=== PATIENT | female | born 1985 | race Caucasian/White ===

== ENCOUNTER 2024-11-06 12:23 | Day surgery (SDC) | payer SELFPAY ==
[2024-11-06 13:04] VITALS: BMI 47.6
[2024-11-06] MEDS ORDERED: hydrALAZINE 20 MG/ML VIAL SLOW IVP PRN (13:06)
[2024-11-06 14:09] LABS: Creatinine, Urine 256.02 mg/dL (16.00-327.00)
[2024-11-06 14:40] LABS: #Basophils Less than 0.03 10x3/uL (0.0-0.2); #Monocytes 0.54 10x3/uL (0.0-1.1); #Neutrophils 5.93 10x3/uL (1.5-8.4); %Basophils 0.2 % (0.0-2.0); %Eosinophils 1.2 % (0.0-6.0); %Lymphocytes 17.9 % (18.0-47.0); %Monocytes 6.7 % (0.0-10.0); %Neutrophils 73.4 % (40.0-75.0); Hematocrit 29.9 % (34.9-44.5); Hemoglobin 10.4 g/dL (12.0-15.5); Mean Corpuscular HGB CONC 34.8 g/dL (32.0-36.0); Mean Corpuscular Hemoglobin 30.6 pg (27.0-33.0); Mean Corpuscular Volume 87.9 fL (81.6-98.3); Mean Platelet Volume 10.4 fL (7.4-10.4); Platelet Count 147 10x3/uL (150-450); RBC Distribution Width 14.9 % (11.5-14.5); White Blood Cell (WBC) Count 8.09 10x3/uL (3.5-10.5)
[2024-11-06 15:01] LABS: ALT (SGPT) 11 U/L (Less than 34); AST (SGOT) 20 U/L (11-34); Albumin 2.9 g/dL (3.1-4.5); Alkaline Phosphatase 73 U/L (40-110); Anion Gap 16 mmol/L (10-20); BUN (Urea Nitrogen) 12 mg/dL (7.0-18.7); Bilirubin, Total 0.2 mg/dL (0.3-1.2); Calc. Creatinine Clearance 238 mL/min (70-130); Calcium 9.5 mg/dL (7.8-10.44); Carbon Dioxide 15 mmol/L (22-29); Chloride 105 mmol/L (98-107); Estimated GFR 118; Globulin 3.8 g/dL (2.4-3.5); Glucose 99 mg/dL (70-105); Protein, Total 6.7 g/dL (6.0-8.3); Sodium 132 mmol/L (136-145)
== END 2024-11-06 16:50 | disposition home or self-care (01) ==
LOC: CSHLD/OP 12:23
PROVIDERS: ATTEND Obstetrics & Gynecology
DX: O14.03 Mild to moderate pre-eclampsia, third trimester (principal); O99.891 Other specified diseases and conditions complicating pregnancy; R51.9 Headache, unspecified; H53.8 Other visual disturbances; O24.419 Gestational diabetes mellitus in pregnancy, unspecified control; O99.213 Obesity complicating pregnancy, third trimester; O99.283 Endocrine, nutritional and metabolic diseases complicating pregnancy, third trimester; E03.9 Hypothyroidism, unspecified; O09.523 Supervision of elderly multigravida, third trimester; O09.43 Supervision of pregnancy with grand multiparity, third trimester; Z79.84 Long term (current) use of oral hypoglycemic drugs; Z79.4 Long term (current) use of insulin; Z79.82 Long term (current) use of aspirin; Z79.899 Other long term (current) drug therapy; Z87.59 Personal history of other complications of pregnancy, childbirth and the puerperium; Z3A.35 35 weeks gestation of pregnancy
CPT/HCPCS: 80053; 82570; 84156; 85025; 99283

== ENCOUNTER 2024-11-15 20:13 | Inpatient (IN) | payer OTHER, SELFPAY ==
[~2024-11-15 20:13] MED LIST: Bupivacaine 0.25% HCL 30 ML VIAL ONE; Lidocaine 2% MPF 10 ML AMP (For Epidural Use) ONE; ePHEDrine Sulfate 50 MG/10 ML VIAL ONE
[2024-11-15] MEDS ORDERED: Misoprostol 200 MCG TAB PR PRN (20:23)
[2024-11-15] MEDS ORDERED: Diphenoxylate HCl/Atropine Tablet PO PRN (20:23)
[2024-11-15] MEDS ORDERED: Tranexamic Acid 1,000 MG/10 ML VIAL IVP PRN (20:23)
[2024-11-15] MEDS ORDERED: Carboprost 250 MCG/ML AMP IM PRN (20:23)
[2024-11-15] MEDS ORDERED: Lidocaine 1% (PF) 30 ML VIAL SC PRN (20:23)
[2024-11-15] MEDS ORDERED: Ondansetron PF 4 MG/2 ML Vial IVP PRN (20:23)
[2024-11-15] MEDS ORDERED: Promethazine HCl 25 MG/ML VIAL IM PRN (20:23)
[2024-11-15] MEDS ORDERED: Acetaminophen 500 MG TAB PO PRN (20:23)
[2024-11-15] MEDS ORDERED: Ibuprofen 800 MG TAB PO PRN (20:23)
[2024-11-15 21:04] VITALS: BMI 48.6
[2024-11-15 21:44] LABS: #Basophils Less than 0.03 10x3/uL (0.0-0.2); #Eosinophils 0.14 10x3/uL (0.0-0.5); #Monocytes 0.57 10x3/uL (0.0-1.1); %Basophils 0.2 % (0.0-2.0); %Eosinophils 1.6 % (0.0-6.0); %Lymphocytes 20.7 % (18.0-47.0); %Monocytes 6.6 % (0.0-10.0); %Neutrophils 69.2 % (40.0-75.0); Hematocrit 30.7 % (34.9-44.5); Hemoglobin 10.9 g/dL (12.0-15.5); Mean Corpuscular HGB CONC 35.5 g/dL (32.0-36.0); Mean Corpuscular Hemoglobin 31.6 pg (27.0-33.0); Mean Platelet Volume 10.4 fL (7.4-10.4); Platelet Count 168 10x3/uL (150-450); RBC Distribution Width 14.9 % (11.5-14.5); Red Blood Cell (RBC) Count 3.45 10x6/uL (3.90-5.03); White Blood Cell (WBC) Count 8.68 10x3/uL (3.5-10.5)
[2024-11-15 22:05] LABS: ALT (SGPT) 11 U/L (Less than 34); AST (SGOT) 20 U/L (11-34); Albumin 2.9 g/dL (3.1-4.5); Alkaline Phosphatase 86 U/L (40-110); Anion Gap 18 mmol/L (10-20); BUN (Urea Nitrogen) 13 mg/dL (7.0-18.7); Bilirubin, Total 0.2 mg/dL (0.3-1.2); Calc. Creatinine Clearance 182 mL/min (70-130); Calcium 9.6 mg/dL (7.8-10.44); Carbon Dioxide 15 mmol/L (22-29); Chloride 104 mmol/L (98-107); Estimated GFR 92; Globulin 3.8 g/dL (2.4-3.5); Glucose 92 mg/dL (70-105); Potassium 3.9 mmol/L (3.5-5.1); Protein, Total 6.7 g/dL (6.0-8.3); Sodium 133 mmol/L (136-145)
[2024-11-15 22:47] LABS: Syphilis Antibody Nonreactive (Nonreactive); Syphilis Antibody Index 0.04 S/CO (<1.00 Non-Reactive)
[2024-11-15 22:49] LABS: HBsAg Index 0.19 S/CO (0-0.99); HIV (1/2) Antibody/Antigen Non-Reactive (NonReactive); HIV 1/2 INDEX 0.11 S/CO (<1.00); Hep B Surf Ag - L&D Non-Reactive S/CO (NonReactive)
[2024-11-16] MEDS: Lactated Ringer's 1,000 ML IV SCH (05:29)
[2024-11-16] MEDS: Oxytocin 30 units/NS 500 ML 500 ML IV SCH ×2 (05:31→18:12)
[2024-11-16] MEDS: fentaNYL 2 mcg/Ropivacaine 0.2% Epidural 100 ML CADD EPIDURAL SCH (15:15)
[2024-11-16] MEDS ORDERED: Lactated Ringer's 500 ML IV PRN (15:23)
[2024-11-16] MEDS ORDERED: Promethazine HCl 25 MG/ML VIAL IM PRN (15:23)
[2024-11-16] MEDS ORDERED: Naloxone HCl 0.4 mg/ml Vial IVP PRN ×4 (15:23→21:18)
[2024-11-16] MEDS ORDERED: Acetaminophen 325 MG TAB PO PRN (15:23)
[2024-11-16] MEDS ORDERED: Ondansetron PF 4 MG/2 ML Vial IVP PRN ×3 (15:23→21:18)
[2024-11-16] MEDS ORDERED: Moisturizing Cream (Eucerin) 113 GM JAR TOP PRN ×2 (15:23→21:18)
[2024-11-16] MEDS ORDERED: diphenhydrAMINE 50 MG/ML VIAL IVP PRN ×2 (15:23→21:18)
[2024-11-16] MEDS ORDERED: ePHEDrine Sulfate 50 MG/10 ML VIAL SLOW IVP PRN (15:23)
[2024-11-16] MEDS ORDERED: Communication Order-Pharmacy FS SCH ×2 (15:30→21:30)
[2024-11-16] MEDS: CEFAZOLIN 2 GM VIAL ONE (19:36)
[2024-11-16] MEDS: hydrALAZINE 20 MG/ML VIAL SLOW IVP PRN (19:39)
[2024-11-16] MEDS ORDERED: Bicitra 30 ML UDCUP PO PRN (19:40)
[2024-11-16] MEDS ORDERED: Famotidine/PF 20 mg/2ml Vial SLOW IVP PRN (19:40)
[2024-11-16] MEDS ORDERED: CEFAZOLIN 2 GM in Sodium Chloride 0.9% 100 ML IVPB SCH (19:45)
[2024-11-16] MEDS ORDERED: Azithromycin 500 MG in Sodium Chloride 0.9% 250 ML 250 ML IVPB SCH (19:45)
[2024-11-16] MEDS ORDERED: Labetalol HCl 100 MG/20 ML VIAL SLOW IVP PRN ×2 (19:59)
[2024-11-16] MEDS ORDERED: hydrALAZINE 20 MG/ML VIAL SLOW IVP PRN ×3 (19:59→21:17)
[2024-11-16] MEDS ORDERED: Calcium Gluc 4.6 MEQ/10 ML (100 MG/ML) SLOW IVP PRN ×2 (19:59→21:17)
[2024-11-16] MEDS ORDERED: Lorazepam 2 MG/ML VIAL SLOW IVP PRN (19:59)
[2024-11-16 20:36] LABS: Analyzer IN Cardio CS NICU; RapidComm Collect By RN; pH (Cord, venous) 7.356 (7.250-7.350)
[2024-11-16 20:37] LABS: Analyzer IN Cardio CS NICU; RapidComm Collect By RN
[2024-11-16] MEDS ORDERED: Lanolin Ointment 7 GM TUBE TOP PRN (21:17)
[2024-11-16] MEDS ORDERED: Bisacodyl 10 MG SUPP PR PRN (21:17)
[2024-11-16] MEDS ORDERED: Misoprostol 200 MCG TAB PR PRN (21:17)
[2024-11-16] MEDS ORDERED: diphenhydrAMINE 25 MG CAP PO PRN (21:17)
[2024-11-16] MEDS ORDERED: fentaNYL 50 mcg/mL 1 mL Vial SLOW IVP PRN (21:18)
[2024-11-16] MEDS ORDERED: Naloxone HCl 0.4 mg/ml Vial IV PRN (21:18)
[2024-11-16] MEDS ORDERED: Meperidine HCl/PF 25 MG (1 mL) VIAL SLOW IVP PRN (21:18)
[2024-11-16] MEDS ORDERED: HYDROmorphone 0.5 MG/0.5 ML SYRINGE SLOW IVP PRN (21:18)
[2024-11-16] MEDS: Magnesium Sulfate 20 gm/500 ml 20 GM/500 ML BAG IVPB SCH (21:20)
[2024-11-16] MEDS ORDERED: Ketorolac Tromethamine 30 MG (1 mL) VIAL IVP SCH (21:30)
[2024-11-16] MEDS ORDERED: Oxytocin 30 units/NS 500 ML 500 ML IV SCH (21:30)
[2024-11-16] MEDS ORDERED: Magnesium Sulfate 20 gm/500 ml 20 GM/500 ML BAG IVPB SCH (21:30)
[2024-11-16] MEDS: Misoprostol 200 MCG TAB ONE (21:43)
[2024-11-16] MEDS: Methylergonovine 0.2 MG/ML VIAL ONE (21:43)
[2024-11-16] MEDS: Tranexamic Acid 1,000 MG/10 ML VIAL ONE (21:45)
[2024-11-16] MEDS: Carboprost 250 MCG/ML AMP ONE (21:45)
[2024-11-16] MEDS: Azithromycin 500 MG VIAL ONE (21:45)
[2024-11-16 22:08] LABS: ALT (SGPT) 9 U/L (Less than 34); AST (SGOT) 16 U/L (11-34); Albumin 2.5 g/dL (3.1-4.5); Alkaline Phosphatase 70 U/L (40-110); Anion Gap 15 mmol/L (10-20); BUN (Urea Nitrogen) 9 mg/dL (7.0-18.7); Bilirubin, Total 0.1 mg/dL (0.3-1.2); Calc. Creatinine Clearance 295 mL/min (70-130); Calcium 8.3 mg/dL (7.8-10.44); Carbon Dioxide 14 mmol/L (22-29); Chloride 108 mmol/L (98-107); Estimated GFR 123; Globulin 3.1 g/dL (2.4-3.5); Glucose 98 mg/dL (70-105); Potassium 3.8 mmol/L (3.5-5.1); Protein, Total 5.6 g/dL (6.0-8.3); Sodium 133 mmol/L (136-145)
[2024-11-16 22:30] LABS: #Basophils Less than 0.03 10x3/uL (0.0-0.2); #Eosinophils 0.07 10x3/uL (0.0-0.5); #Monocytes 0.58 10x3/uL (0.0-1.1); #Neutrophils 7.48 10x3/uL (1.5-8.4); %Basophils 0.2 % (0.0-2.0); %Eosinophils 0.7 % (0.0-6.0); %Lymphocytes 14.8 % (18.0-47.0); %Neutrophils 77.6 % (40.0-75.0); Hematocrit 29.5 % (34.9-44.5); Hemoglobin 9.7 g/dL (12.0-15.5); Mean Corpuscular HGB CONC 32.9 g/dL (32.0-36.0); Mean Corpuscular Volume 91.3 fL (81.6-98.3); Mean Platelet Volume 10.6 fL (7.4-10.4); Platelet Count 145 10x3/uL (150-450); RBC Distribution Width 14.8 % (11.5-14.5); Red Blood Cell (RBC) Count 3.23 10x6/uL (3.90-5.03); White Blood Cell (WBC) Count 9.65 10x3/uL (3.5-10.5)
[2024-11-17] MEDS: Ondansetron PF 4 MG/2 ML Vial IVP PRN (00:30)
[2024-11-17] MEDS: Promethazine HCl 25 MG/ML VIAL IM PRN (04:08)
[2024-11-17 05:21] LABS: Hematocrit 27.7 % (34.9-44.5); Hemoglobin 9.6 g/dL (12.0-15.5); Mean Corpuscular HGB CONC 34.7 g/dL (32.0-36.0); Mean Corpuscular Hemoglobin 31.3 pg (27.0-33.0); Mean Corpuscular Volume 90.2 fL (81.6-98.3); Platelet Count 137 10x3/uL (150-450); Red Blood Cell (RBC) Count 3.07 10x6/uL (3.90-5.03); White Blood Cell (WBC) Count 9.12 10x3/uL (3.5-10.5)
[2024-11-17] MEDS: Thyroid 30 MG TAB PO SCH (07:18)
[2024-11-17] MEDS: Ferrous Sulfate 325 MG TAB PO SCH (09:23)
[2024-11-17] MEDS: Prenatal Vitamin 1 TAB PO SCH (09:23)
[2024-11-17] MEDS: Docusate 100 MG CAP PO SCH (09:23)
[2024-11-17] MEDS: Enoxaparin 40 MG (0.4 mL) SYRINGE SC SCH (09:23)
[2024-11-17] MEDS ORDERED: Lorazepam 2 MG/ML VIAL SLOW IVP PRN (15:24)
[2024-11-17] MEDS: Ketorolac Tromethamine 30 MG (1 mL) VIAL IVP PRN (16:52)
[2024-11-17] MEDS: Ibuprofen 800 MG TAB PO SCH (22:27)
[2024-11-18] MEDS: fentaNYL/Ropivacaine Epidural 100 ML ONE (07:10)
[2024-11-18] MEDS: Fentanyl 100 MCG/2 ML VIAL ONE (07:11)
[2024-11-18] MEDS: Dexmedetomidine 200 MCG/2 ML VIAL ONE (07:11)
[2024-11-18] MEDS: Morphine PF 10 MG/10 ML VIAL ONE (07:11)
[2024-11-18] MEDS: PHENYLEPHRINE-NS 100 MCG/ML 10 ML SYRINGE ONE (07:11)
[2024-11-18] MEDS: Famotidine/PF 20 mg/2ml Vial ONE (07:13)
[2024-11-18] MEDS: Boostrix 0.5 ML (Tdap) VIAL (>/=7 yrs of age) IM ONE (07:13)
[2024-11-18] MEDS: Magnesium Sulfate 20 gm/500 ml 20 GM/500 ML BAG ONE (07:13)
[2024-11-18] MEDS: Oxytocin 10 UNITS/ML VIAL ONE (07:13)
[2024-11-18] MEDS: Ondansetron PF 4 MG/2 ML Vial ONE (07:13)
[2024-11-18] MEDS: Simethicone Chewable 80 MG TAB PO PRN (08:00)
[2024-11-18] MEDS: HYDROcodone/Acetaminophen 5/325 mg Tablet PO PRN (08:00)
[2024-11-18] MEDS: NIFEdipine XL 30 MG ER.TAB PO SCH (21:46)
[2024-11-18] MEDS: Labetalol HCl 100 MG/20 ML VIAL ONE (22:08)
[2024-11-18 22:45] LABS: Hematocrit 30.4 % (34.9-44.5); Hemoglobin 10.1 g/dL (12.0-15.5); Mean Corpuscular HGB CONC 33.2 g/dL (32.0-36.0); Mean Corpuscular Hemoglobin 30.4 pg (27.0-33.0); Mean Corpuscular Volume 91.6 fL (81.6-98.3); Platelet Count 163 10x3/uL (150-450); RBC Distribution Width 15.2 % (11.5-14.5); Red Blood Cell (RBC) Count 3.32 10x6/uL (3.90-5.03); White Blood Cell (WBC) Count 9.82 10x3/uL (3.5-10.5)
[2024-11-18 22:57] LABS: ALT (SGPT) 16 U/L (Less than 34); AST (SGOT) 34 U/L (11-34); Albumin 2.6 g/dL (3.1-4.5); Alkaline Phosphatase 68 U/L (40-110); Anion Gap 12 mmol/L (10-20); BUN (Urea Nitrogen) 9 mg/dL (7.0-18.7); Bilirubin, Total 0.1 mg/dL (0.3-1.2); Calc. Creatinine Clearance 289 mL/min (70-130); Calcium 9.2 mg/dL (7.8-10.44); Carbon Dioxide 18 mmol/L (22-29); Chloride 110 mmol/L (98-107); Estimated GFR 123; Globulin 3.4 g/dL (2.4-3.5); Glucose 112 mg/dL (70-105); Potassium 4.1 mmol/L (3.5-5.1); Sodium 136 mmol/L (136-145)
[2024-11-18] MEDS: Furosemide 40 MG (4 mL) VIAL SLOW IVP SCH (23:15)
[2024-11-19] MEDS: NIFEdipine 10 MG CAP ONE (07:22)
[2024-11-19] MEDS: Labetalol HCl 100 MG/20 ML VIAL SLOW IVP SCH (07:22)
[2024-11-19] MEDS: NIFEdipine XL 30 MG ER.TAB PO SCH (08:10)
[2024-11-20 05:50] VITALS: TEMP 97.9
[2024-11-20] MEDS: HYDROcodone/Acetaminophen 5/325 mg Tablet PO PRN (09:23)
[2024-11-20 10:20] VITALS: BP 143/80
== END 2024-11-20 14:25 | disposition home or self-care (01) | DRG 788 ==
LOC: CSHLD 20:13 → CSHPP 11-19 09:50
PROVIDERS: ADMIT Family Medicine; ATTEND Family Medicine
PROC: 10D00Z1 Extraction of Products of Conception, Low, Open Approach (ICD-10-PCS; principal; 2024-11-16)
DX: O14.14 Severe pre-eclampsia complicating childbirth (principal); O99.214 Obesity complicating childbirth; O24.425 Gestational diabetes mellitus in childbirth, controlled by oral hypoglycemic drugs; Z3A.37 37 weeks gestation of pregnancy; Z37.0 Single live birth; O99.284 Endocrine, nutritional and metabolic diseases complicating childbirth; E03.9 Hypothyroidism, unspecified; Z79.82 Long term (current) use of aspirin; O34.211 Maternal care for low transverse scar from previous cesarean delivery; O26.893 Other specified pregnancy related conditions, third trimester; Z67.31 Type AB blood, Rh negative
CPT/HCPCS: 36415; 36416; 51702; 59200; 76815; 80053; 82805; 85025; 85027; 85461; 86780; 86850; 86900; 86901; 87340; 87389; 90384; 96372; J0360; J0665; J1650; J1885; J1940; J2274; J2405; J2550; J2590; J3010; J3475; J3490; J7120